=== PATIENT | male | born 1935 | race Caucasian/White ===

== ENCOUNTER 2018-02-16 07:28 | Outpatient (CLI) | payer MEDICARE ==
[2018-02-16] MEDS ORDERED: Iopamidol 370 76% 100 ML VIAL ONE (09:00)
--- NOTE | 2018-02-16 09:49 | CT ---
CT ABDOMEN WITH CONTRAST CT PELVIS WITH CONTRAST: DATE: 02/16/18 TIME: 0813 HOURS HISTORY: 82-year-old male with periumbilical abdominal pain, R10.33. COMPARISON: None. TECHNIQUE: IV injection of iodinated contrast media: 70 mL of Isovue-370. Oral contrast media: Administered. FINDINGS: A short loop of ileum protrudes into the right inguinal canal, without signs of entrapment. No small bowel dilation. Numerous small calcifications throughout the pancreas is evidence for chronic pancreatitis. There is focal enlargement of a segment of the body of the pancreas (axial image 22 of 92, series 2; coronal i mage 66 of 169, series 602) with dimensions of approximately 2.5 x 3.5 x 3.5 cm. There is questionabl e mild surrounding fat stranding. The pancreatic duct distal to this is mildly dilated to approximate ly 4 mm caliber. There is no pancreatic ductal dilation proximal to this. The dilation could be due t o an obstructing calculus that measures approximately 7 mm in diameter (coronal image 64 of 169, seri es 602; axial image 23 of 92, series 2). No hydronephrosis bilaterally. A few tiny cortical hypodensi ties in kidneys, too small to definitively characterize. 0.8 cm small hypodense lesion in left lobe o f liver in hepatic segment 2, too small to characterize. The rest of the liver is unremarkable. No sp lenomegaly. No adrenal mass. Atherosclerotic calcification without aneurysm of iliac arteries and abd ominal aorta. There are cholecystectomy clips in the gallbladder fossa. The appendix is surgically ab sent by history. No signs of acute colonic diverticulitis. Moderate volume of colonic stool. No ascit es or pneumoperitoneum. Lung bases are grossly clear. IMPRESSION: 1. Focal enlargement of the body of the pancreas. This could represent either a primary pancreatic n eoplasm or a mild acute pancreatitis. Recommend correlation with serum lipase and amylase. Recommen d follow up CT abdomen with contrast in 3 months. 2. Dilation of the distal pancreatic duct, due to occlusion either by the possible pancreatic mass o r by a 7 mm calculus. 3. Numerous calcifications of the pancreas: evidence for chronic pancreatitis. 4. Right inguinal hernia. 5. Status post appendectomy and cholecystectomy. JNDeepa POS: ELMIRA
== END 2018-02-16 07:29 | disposition home or self-care (01) ==
LOC: SCSCT 07:28
PROVIDERS: ATTEND Internal Medicine
DX: R10.33 Periumbilical pain (principal); K40.90 Unilateral inguinal hernia, without obstruction or gangrene, not specified as recurrent; K86.1 Other chronic pancreatitis; K86.89 Other specified diseases of pancreas; Z90.49 Acquired absence of other specified parts of digestive tract
CPT/HCPCS: 74177; 82565

== ENCOUNTER 2020-02-24 05:47 | Outpatient (CLI) | payer MEDICARE, OTHER ==
[2020-02-24 13:34] LABS: Hemoglobin 18.6 g/dL (14.0-18.0); Mean Corpuscular HGB CONC 32.8 g/dL (32.0-36.0); Mean Corpuscular Hemoglobin 32.3 pg (27.0-31.0); Mean Corpuscular Volume 98.6 fL (78.0-98.0); Mean Platelet Volume 7.3 fL (7.4-10.4); Platelet Count 291 thou/uL (130-400); Red Blood Cell (RBC) Count 5.74 mill/uL (4.70-6.10); White Blood Cell (WBC) Count 10.2 thou/uL (4.8-10.8)
[2020-02-24 13:53] LABS: Anion Gap 17 mmol/L (10-20); BUN (Urea Nitrogen) 32 mg/dL (8.4-25.7); Calc. Creatinine Clearance 0 mL/min (70-130); Calcium 9.2 mg/dL (7.8-10.44); Carbon Dioxide 24 mmol/L (23-31); Chloride 99 mmol/L (98-107); Estimated GFR-MDRD 47; Glucose 171 mg/dL (83-110); Potassium 4.1 mmol/L (3.5-5.1); Sodium 136 mmol/L (136-145)
[2020-02-24 13:59] LABS: INR-International Normal Ratio 0.9; Prothrombin Time 11.8 sec (12.0-14.7)
[2020-02-24 14:00] LABS: PTT 32.5 SEC (22.9-36.1)
[2020-02-24 14:07] LABS: Bacteria/HPF None Seen HPF (None Seen); Bilirubin Negative (Negative); Blood, Urine Negative (Negative); Clarity Clear (Clear); Glucose, Urine (Dipstick) Normal (Negative); Leukocyte 25 Leu/uL (Negative); Nitrite Negative (Negative); Protein, Urine (Dipstick) Negative (Neg-Trace); RBC/HPF 0-3 HPF (0-3); Squamous Epithelial 0-3 HPF (0-3); Urobilinogen Normal mg/dL (Less than 2); WBC/HPF 0-3 HPF (0-3)
[2020-02-24 17:18] LABS: SARS-CoV-2 MS2 Positive; SARS-CoV-2 N Gene Negative; SARS-CoV-2 S Gene Negative; SARS-CoV-2 orf1ab Negative
--- NOTE | 2020-02-27 16:15 | EKG ---
Test Reason : Blood Pressure : / mmHG Vent. Rate : 094 BPM Atrial Rate : 094 BPM P-R Int : 132 ms QRS Dur : 088 ms QT Int : 336 ms P-R-T Axes : 065 003 017 degrees QTc Int : 420 ms Normal sinus rhythm with sinus arrhythmia Possible Inferior infarct , age undetermined Abnormal ECG No previous ECGs available Confirmed by JEANETTE CHAHAL ([id number]) on 02/27/2020 4:15:16 PM Referred By: KIARA Confirmed By:JEANETTE CHAHAL
== END 2020-02-24 05:48 | disposition home or self-care (01) ==
LOC: LABBT 05:47
PROVIDERS: ATTEND Urology
DX: Z01.818 Encounter for other preprocedural examination (principal); Z11.59 Encounter for screening for other viral diseases
CPT/HCPCS: 80048; 81001; 85027; 85610; 85730; 87086; 93005; U0002; 87635; 93010; U0003

== ENCOUNTER 2020-02-28 08:55 | Day surgery (SDC) | payer MEDICARE ==
[2020-02-24 10:54] VITALS: BMI 29.2
[2020-02-28] MEDS ORDERED: Ondansetron PF 4 MG/2 ML Vial ONE (10:49)
[2020-02-28] MEDS ORDERED: Lidocaine 1% PF 5 ML VIAL ONE (10:49)
[2020-02-28] MEDS ORDERED: PROPOFOL 200 MG/20 ML VIAL ONE (10:49)
[2020-02-28] MEDS ORDERED: Fentanyl 100 MCG/2 ML VIAL ONE (12:07)
[2020-02-28] MEDS ORDERED: Midazolam HCl 2 mg/2 ml Vial ONE (12:07)
--- NOTE | 2020-02-28 20:06 | OP ---
DATE OF PROCEDURE: 02/28/2020 PREOPERATIVE DIAGNOSES: Bladder tumor, prostatic urethral tumor. POSTOPERATIVE DIAGNOSES: Bladder tumor, prostatic urethral tumor. PROCEDURES PERFORMED: Cysto TURBT of right wall bladder tumor, fulguration of tiny midline bladder tumor, and fulguration of prostatic urethral tumor. ANESTHESIA: LMA. ESTIMATED BLOOD LOSS: Minimal. FINDINGS: There was a tumor about half a centimeter in size. It was papillary on the right wall. There was small papillary tumor in midline on the posterior wall and also a small papillary tumor near what remained to the verumontanum from prior prostatic urethral surgery. Last two were cauterized as they were quite small. DESCRIPTION OF PROCEDURE: After obtaining written and verbal consent from the patient, after receiving IV Ancef, he was taken to the operating suite. He was placed in a supine position on the treatment table. PlexiPulses were placed in his lower extremities and turned on. He was given a general anesthetic and oral obturator intubation, placed in the dorsal lithotomy position, sterilely prepped and draped. Cystoscopy was performed with a 22-Italian sheath. This was well lubricated, passed under direct vision through the male urethra into the urinary bladder with the aid of a 30-degree lens and video camera monitor. The bladder was filled and emptied number of times being examined with both the 30 and 70-degree lens with the findings as above. A 24-Italian resectoscope sheath was passed with the visual obturator and 30-degree lens and video camera monitor through the male urethra into the bladder. An AdGent Digital resectoscope with Gyrus generator and Gyrus bladder tumor loop were used. Tumor on the right wall was resected and sent to Pathology and cauterized. It was not near the ureteral orifice. The other two much smaller papillary lesions were fulgurated. The bladder was drained and the instruments were removed. The catheter was not placed. He will need to void. He was taken out of the dorsal lithotomy position, awakened, extubated, and taken by stretcher to recovery room. Job ID: [id number]
== END 2020-02-28 15:48 | disposition home or self-care (01) ==
LOC: SDC 08:55
PROVIDERS: ATTEND Urology
PROC: 0T5B8ZZ Destruction of Bladder, Via Natural or Artificial Opening Endoscopic (ICD-10-PCS; principal; 2020-02-28)
PROC: 0VT08ZZ Resection of Prostate, Via Natural or Artificial Opening Endoscopic (ICD-10-PCS; 2020-02-28)
DX: D49.59 Neoplasm of unspecified behavior of other genitourinary organ (principal); C67.2 Malignant neoplasm of lateral wall of bladder; I12.9 Hypertensive chronic kidney disease with stage 1 through stage 4 chronic kidney disease, or unspecified chronic kidney disease; E11.22 Type 2 diabetes mellitus with diabetic chronic kidney disease; N18.9 Chronic kidney disease, unspecified; F17.200 Nicotine dependence, unspecified, uncomplicated; Z79.4 Long term (current) use of insulin; Z79.82 Long term (current) use of aspirin; Z79.899 Other long term (current) drug therapy
CPT/HCPCS: 36416; 88307; J0690; J2001; J2250; J2405; J2704; J3010

== ENCOUNTER 2020-09-01 20:11 | Inpatient (IN) | payer MEDICARE ==
--- NOTE | 2020-09-01 21:01 | RAD ---
EXAM: Single view of the chest HISTORY: Urinary retention and sepsis COMPARISON: 11/22/2016 FINDINGS: Single view of the chest shows a normal sized cardiomediastinal silhouette. There is no louann dence of consolidation, mass, or pleural effusion. Degenerative changes are seen in the spine. IMPRESSION: No evidence of acute cardiopulmonary disease
[2020-09-01 21:07] LABS: ALT (SGPT) 16 U/L (8-55); AST (SGOT) 19 U/L (5-34); Albumin 4.3 g/dL (3.4-4.8); Alkaline Phosphatase 96 U/L (40-110); Anion Gap 17 mmol/L (10-20); BUN (Urea Nitrogen) 23 mg/dL (8.4-25.7); Bilirubin, Total 0.5 mg/dL (0.2-1.2); Calc. Creatinine Clearance 0 mL/min (70-130); Carbon Dioxide 21 mmol/L (23-31); Chloride 100 mmol/L (98-107); Globulin 3.1 g/dL (2.4-3.5); Glucose 174 mg/dL (83-110); Lipase 48 U/L (8-78); Protein, Total 7.4 g/dL (5.8-8.1); Sodium 134 mmol/L (136-145)
[2020-09-01] MEDS ORDERED: Lidocaine 2% Jelly 5 ML TUBE TOP SCH (21:15)
[2020-09-01 21:17] LABS: Band 17 % (5-11); Hemoglobin 16.2 g/dL (14.0-18.0); Lymphocytes 4 % (21-51); MDiff Complete? YES; Mean Corpuscular HGB CONC 33.7 g/dL (32.0-36.0); Mean Corpuscular Hemoglobin 32.4 pg (27.0-31.0); Monocytes 7 % (0-10); Neutrophil 72 % (42-75); Platelet Count 260 thou/uL (130-400); RBC Distribution Width 12.3 % (11.5-14.5); Red Blood Cell (RBC) Count 5.01 mill/uL (4.70-6.10); White Blood Cell (WBC) Count 22.7 thou/uL (4.8-10.8)
[2020-09-01] MEDS ORDERED: Acetaminophen 500 MG TAB ONE (21:17)
[2020-09-01] MEDS ORDERED: cefTRIAXone\\ROCEPHIN 2 GM VIAL ONE (21:17)
[2020-09-01 21:32] LABS: Bacteria/HPF 4+ HPF (None Seen); Bilirubin Negative (Negative); Blood, Urine 1+ (Negative); Clarity Turbid (Clear); Glucose, Urine (Dipstick) 50 mg/dL (Negative); Ketone, Urine Negative (Negative); Leukocyte 500 Leu/uL (Negative); Nitrite 2+ (Negative); Protein, Urine (Dipstick) 20 mg/dL (Neg-Trace); Specific Gravity, Urine 1.015 (1.002-1.036); Squamous Epithelial 0-3 HPF (0-3); Urobilinogen Normal mg/dL (Less than 2); WBC/HPF Greater than 50 HPF (0-3)
[2020-09-01 23:37] LABS: Lactic Acid 1.6 mmol/L (0.5-2.2)
[2020-09-02] MEDS ORDERED: Acetaminophen 325 MG TAB PO PRN (00:45)
[2020-09-02] MEDS ORDERED: Ondansetron PF 4 MG/2 ML Vial IVP PRN (00:45)
[2020-09-02] MEDS ORDERED: Ondansetron ODT 4 MG TAB SL PRN (00:45)
[2020-09-02] MEDS ORDERED: Sodium Chloride 0.9% 1,000 ML IV SCH (01:00)
[2020-09-02 01:05] VITALS: BMI 32.1
[2020-09-02] MEDS ORDERED: Calcium Carbonate 500 MG ChewTAB PO PRN (01:27)
--- NOTE | 2020-09-02 01:36 | PDOC.HHP ---
Hospitalist HPI - History of Present Illness urinary retention History of Present Illness: Case of an 84y/o male with pmhx of bladder CA, htn, bph and DM who comes to hospital due to difficulty urinating. patient refers he was on his usual state of health until 2 days ago when he had a cystoscopy by Dr. Hubbard. he has a history of bladder CA and this was part of his f/u which was resected several months ago. He states was given 1 dose of antibiotic and sent home, once he started with difficulty voiding, has only been able to void 2 times for the last 2 days despite urgency. Today he is only able to urinate a very small amount and has had increasing lower abdominal pain. patient referes some fever dysuria and chills denies hematuria nausea or vomiting. at the ED a hill cath was placed and pt was dx with sepsis secondary to uti for which hospitalist was called for further evaluation and management Hospitalist ROS - Review of Systems All other systems reviewed; all pertinent +/- noted in HPI/Subj - Medication Medications: Active Medications Generic Name Dose Route Start Last Admin Trade Name Freq PRN Reason Stop Dose Admin Sodium Chloride 1,000 mls @ 100 mls/hr 09/02/20 01:00 09/02/20 01:11 Normal Saline 0.9% IV 09/02/20 10:59 1,000 mls .Q10H MANJULA Administration Hospitalist History - Past Surgical History Other Surgical History: bladder ca removal - Family History Family History: reports: no pertinent history, diabetes mellitus - Social History Smoking Status: Never smoker Alcohol: reports: None Drugs: reports: none Living Situation: With Family - Exam General Appearance: NAD, awake alert Eye: PERRL, anicteric sclera ENT: normocephalic atraumatic, no oropharyngeal lesions, moist mucosa Neck: supple, symmetric, no JVD, no thyromegaly Heart: RRR, no murmur, no gallops, no rubs Respiratory: CTAB, no wheezes, no rales, no ronchi Gastrointestinal: soft, non-distended, normal bowel sounds Gastrointestinal - other findings: suprapubic pain Extremities: no cyanosis, no clubbing, no edema Skin: normal turgor, no lesions, no rashes Neurological: cranial nerve grossly intact, normal sensation to touch, no weakness Musculoskeletal: normal tone, normal strength, no muscle wasting Psychiatric: normal affect, normal behavior, A&O x 3 Hospitalist Results - Labs Result Diagrams: 09/01/20 20:17 09/01/20 20:17 Lab results: WBC 22.7 thou/uL (4.8-10.8) H 09/01/20 20:17 Hgb 16.2 g/dL (14.0-18.0) 09/01/20 20:17 Hct 48.1 % (42.0-52.0) 09/01/20 20:17 MCV 96.0 fL (78.0-98.0) 09/01/20 20:17 Plt Count 260 thou/uL (130-400) 09/01/20 20:17 Band Neuts % (Manual) 17 % (5-11) H 09/01/20 20:17 Sodium 134 mmol/L (136-145) L 09/01/20 20:17 Potassium 4.0 mmol/L (3.5-5.1) 09/01/20 20:17 Chloride 100 mmol/L (98-107) 09/01/20 20:17 Carbon Dioxide 21 mmol/L (23-31) L 09/01/20 20:17 BUN 23 mg/dL (8.4-25.7) 09/01/20 20:17 Creatinine 1.48 mg/dL (0.7-1.3) H 09/01/20 20:17 Glucose 174 mg/dL (83-110) H 09/01/20 20:17 Lactic Acid 1.6 mmol/L (0.5-2.2) 09/01/20 23:07 Calcium 9.0 mg/dL (7.8-10.44) 09/01/20 20:17 Total Bilirubin 0.5 mg/dL (0.2-1.2) 09/01/20 20:17 AST 19 U/L (5-34) 09/01/20 20:17 ALT 16 U/L (8-55) 09/01/20 20:17 Alkaline Phosphatase 96 U/L (40-110) 09/01/20 20:17 Serum Total Protein 7.4 g/dL (5.8-8.1) 09/01/20 20:17 Albumin 4.3 g/dL (3.4-4.8) 09/01/20 20:17 Lipase 48 U/L (8-78) 09/01/20 20:17 Urine Ketones Negative mg/dL (Negative) 09/01/20 21:14 Urine Blood 1+ (Negative) A 09/01/20 21:14 Urine Nitrite 2+ (Negative) A 09/01/20 21:14 Ur Leukocyte Esterase 500 Almaz/uL (Negative) A 09/01/20 21:14 Urine RBC 11-20 HPF (0-3) A 09/01/20 21:14 Urine WBC Greater than 50 HPF (0-3) A 09/01/20 21:14 Ur Squamous Epith Cells 0-3 HPF (0-3) 09/01/20 21:14 Urine Bacteria 4+ HPF (None Seen) A 09/01/20 21:14 Hospitalist H&P A/P - Problem (1) Sepsis Code(s): A41.9 - SEPSIS, UNSPECIFIED ORGANISM Status: Acute (2) UTI (urinary tract infection) Status: Acute (3) Bladder retention of urine Code(s): R33.9 - RETENTION OF URINE, UNSPECIFIED Status: Acute (4) Diabetes Code(s): E11.9 - TYPE 2 DIABETES MELLITUS WITHOUT COMPLICATIONS Status: Acute (5) HTN (hypertension) Code(s): I10 - ESSENTIAL (PRIMARY) HYPERTENSION Status: Acute - Plan Plan: 84y/o male with the stated pmxh who presents w sepsis secondary to uti and urinary retention sepsis secondary to uti - 22 wbcs, tachycardia i 135s with a u/a consistent with uti - sepsis bundles started cultures taken, ivfs given and broad spectrum abx given - continue with rocephin - normal LA - f/u cultures urinary retention - hx of bph - recent hx of cytoscopy - hill cath placed on ED - continue flomax - consider urology consult if needed, can likely f/u as opd dm - long acting insulin - acc + ss htn - holding medication for now in the setting of sepsis, restart when more stable
[2020-09-02] MEDS ORDERED: Dextrose 5% in Water 1,000 ML IV PRN (03:53)
[2020-09-02] MEDS ORDERED: Dextrose 50% Abboject 50 ML SYRINGE SLOW IVP PRN (03:53)
[2020-09-02] MEDS: Sodium Chloride 0.9% 1,000 ML IV SCH ×2 (06:14→12:29)
[2020-09-02] MEDS: HumaLOG 300 UNITS/3 ML VIAL SC PRN ×3 (06:18→21:00)
[2020-09-02 06:42] LABS: Band 22 % (5-11); Hemoglobin 14.9 g/dL (14.0-18.0); Lymphocytes 8 % (21-51); MDiff Complete? YES; Mean Corpuscular HGB CONC 33.1 g/dL (32.0-36.0); Mean Corpuscular Hemoglobin 32.4 pg (27.0-31.0); Mean Platelet Volume 7.5 fL (7.4-10.4); Monocytes 4 % (0-10); Neutrophil 66 % (42-75); Platelet Count 234 thou/uL (130-400); RBC Distribution Width 12.3 % (11.5-14.5); Red Blood Cell (RBC) Count 4.61 mill/uL (4.70-6.10); White Blood Cell (WBC) Count 25.5 thou/uL (4.8-10.8)
[2020-09-02 06:45] LABS: ALT (SGPT) 15 U/L (8-55); AST (SGOT) 15 U/L (5-34); Albumin 3.7 g/dL (3.4-4.8); Alkaline Phosphatase 83 U/L (40-110); Anion Gap 16 mmol/L (10-20); BUN (Urea Nitrogen) 20 mg/dL (8.4-25.7); Bilirubin, Total 0.7 mg/dL (0.2-1.2); Calc. Creatinine Clearance 58 mL/min (70-130); Calcium 8.2 mg/dL (7.8-10.44); Carbon Dioxide 24 mmol/L (23-31); Chloride 102 mmol/L (98-107); Globulin 2.6 g/dL (2.4-3.5); Glucose 146 mg/dL (83-110); Potassium 3.9 mmol/L (3.5-5.1); Protein, Total 6.3 g/dL (5.8-8.1); Sodium 138 mmol/L (136-145)
[2020-09-02] MEDS: Aspirin 81 mg Enteric Coated Tablet PO SCH (08:39)
[2020-09-02] MEDS: Enoxaparin Sodium 40 MG/0.4 ML SYRINGE SC SCH (08:39)
[2020-09-02] MEDS: HYDROcodone/Acetaminophen 5/325 mg Tablet PO PRN ×2 (18:32→23:51)
[2020-09-02] MEDS: cefTRIAXone\\ROCEPHIN 2 GM in Sodium Chloride 0.9% 100 ML IVPB SCH (20:46)
[2020-09-02] MEDS: Tamsulosin HCl 0.4 MG CAP PO SCH (20:46)
[2020-09-02 20:50] LABS: SARS-CoV-2 MS2 Positive; SARS-CoV-2 N Gene Negative; SARS-CoV-2 S Gene Negative; SARS-CoV-2 by NAA Not Detected (NotDetected); SARS-CoV-2 orf1ab Negative
[2020-09-02] MEDS: Insulin Glargine 25 UNITS in Pre-Filled Syringe 1 EACH SC SCH (20:55)
[2020-09-03] MEDS: HYDROcodone/Acetaminophen 5/325 mg Tablet PO PRN ×4 (04:30→21:09)
[2020-09-03] MEDS: Sodium Chloride 0.9% 1,000 ML IV SCH (06:18)
--- NOTE | 2020-09-03 08:24 | PDOC.HOSPP ---
- Subjective Encounter Date: 09/02/20 Encounter Time: 12:00 Subjective: pt seen and examined, he still has some soreness in the lower quadrant; otherwise no complaints. - Objective Vital Signs & Weight: Vital Signs (12 hours) Temp Pulse Resp BP Pulse Ox 09/03/20 08:00 97.9 F 81 16 156/89 H 95 09/03/20 04:32 97.8 F 76 18 143/87 H 96 09/02/20 23:42 97.4 F L 80 20 134/79 94 L Weight Weight 217 lb 12.785 oz I&O: 09/02/20 09/03/20 09/04/20 06:59 06:59 06:59 Intake Total 937 2810 Output Total 1400 2250 Balance -463 560 Result Diagrams: 09/02/20 05:28 09/02/20 05:28 Additional Labs: Accuchecks 09/03/20 09/02/20 09/02/20 05:47 20:50 16:16 POC Glucose 98 258 H 90 09/02/20 11:02 POC Glucose 260 H Hospitalist ROS - Medication Medications: Active Medications Generic Name Dose Route Start Last Admin Trade Name Freq PRN Reason Stop Dose Admin Hydrocodone Bitart/Acetaminophen 1 tab 09/02/20 01:27 09/03/20 04:30 Hydrocodone/Acetaminophen 5/325 Mg Tablet PO 1 tab Q4H PRN Administration Moderate Pain (4-6) Aspirin 81 mg 09/02/20 09:00 09/02/20 08:39 Aspirin 81 Mg Enteric Coated Tablet PO 81 mg DAILY MANJULA Administration Enoxaparin Sodium 40 mg 09/02/20 09:00 09/02/20 08:39 Enoxaparin Sodium 40 Mg/0.4 Ml Syringe SC 40 mg 0900 MANJULA Administration Sodium Chloride 1,000 mls @ 70 mls/hr 09/02/20 01:30 09/03/20 06:18 Normal Saline 0.9% IV 1,000 mls .[id number] MANJULA Administration Ceftriaxone Sodium 2 gm/ 100 mls @ 200 mls/hr 09/02/20 21:00 09/02/20 20:46 Sodium Chloride IVPB 100 mls Q24HR MANJULA Administration Insulin Glargine 25 units/ 0.25 mls @ 0 mls/hr 09/02/20 21:00 09/02/20 20:55 Miscellaneous Medication SC 0.25 mls HS MANJULA Administration Insulin Human Lispro 0 units 09/02/20 03:53 09/02/20 21:00 Humalog 300 Units/3 Ml Vial SC 6 unit .MODERATE SLIDING SC PRN Administration Moderate Correctional Scale Sodium Chloride 10 ml 09/02/20 09:00 09/02/20 21:35 Flush - Normal Saline 10 Ml Syringe IVF Not Given Q12HR MANJULA Tamsulosin HCl 0.4 mg 09/02/20 21:00 09/02/20 20:46 Tamsulosin Hcl 0.4 Mg Cap PO 0.4 mg HS MANJULA Administration - Exam General Appearance: NAD, awake alert Eye: PERRL ENT: normocephalic atraumatic Neck: supple Heart: RRR Respiratory: CTAB, normal chest expansion Gastrointestinal: soft, normal bowel sounds Neurological: no focal deficits Psychiatric: A&O x 3 Hosp A/P - Plan sepsis secondary to uti EColi UTI - sepsis bundles started cultures taken, ivfs given and broad spectrum abx given - continue with rocephin - normal LA -Sensitivity pending. urinary retention - hx of bph - recent hx of cytoscopy - hill cath placed on ED - continue flomax - consider urology consult if needed, can likely f/u as outpatient dm - long acting insulin - acc + ss htn -Creatinine 1.3 -We can resume his home medications
[2020-09-03] MEDS: Enoxaparin Sodium 40 MG/0.4 ML SYRINGE SC SCH (08:43)
[2020-09-03] MEDS: Aspirin 81 mg Enteric Coated Tablet PO SCH (08:43)
[2020-09-03 09:00] LABS: #Eosinphils 0.1 thou/uL (0.0-0.7); #Lymphocytes 1.5 thou/uL (1.20-3.40); #Monocytes 0.9 thou/uL (0.11-0.59); #Neutrophils 16.2 thou/uL (1.40-6.50); %Basophils 0.2 % (0.0-1.0); %Eosinophils 0.6 % (0.0-10.0); %Lymphocytes 8.1 % (21.0-51.0); %Monocytes 4.6 % (0.0-10.0); %Neutrophils 86.6 % (42.0-75.0); Hemoglobin 14.2 g/dL (14.0-18.0); Mean Corpuscular HGB CONC 32.9 g/dL (32.0-36.0); Mean Corpuscular Hemoglobin 31.9 pg (27.0-31.0); Mean Corpuscular Volume 97.1 fL (78.0-98.0); Mean Platelet Volume 7.1 fL (7.4-10.4); Platelet Count 208 thou/uL (130-400); RBC Distribution Width 12.3 % (11.5-14.5); Red Blood Cell (RBC) Count 4.44 mill/uL (4.70-6.10); White Blood Cell (WBC) Count 18.7 thou/uL (4.8-10.8)
[2020-09-03 09:15] LABS: Anion Gap 12 mmol/L (10-20); BUN (Urea Nitrogen) 17 mg/dL (8.4-25.7); Calc. Creatinine Clearance 68 mL/min (70-130); Calcium 8.3 mg/dL (7.8-10.44); Carbon Dioxide 28 mmol/L (23-31); Chloride 102 mmol/L (98-107); Glucose 142 mg/dL (83-110); Potassium 3.6 mmol/L (3.5-5.1); Sodium 138 mmol/L (136-145)
[2020-09-03] MEDS: HumaLOG 300 UNITS/3 ML VIAL SC PRN ×2 (11:07→21:59)
--- NOTE | 2020-09-03 15:02 | PDOC.HOSPP ---
- Subjective Encounter Date: 09/03/20 Encounter Time: 10:40 Subjective: Patient has significant hematuria. Pain in the lower quadrant seems to be improving. White count trending down. Urine culture growing E. coli - Objective Vital Signs & Weight: Vital Signs (12 hours) Temp Pulse Resp BP Pulse Ox 09/03/20 10:43 98.0 F 76 16 134/86 96 09/03/20 08:00 97.9 F 81 16 156/89 H 95 09/03/20 04:32 97.8 F 76 18 143/87 H 96 Weight Weight 217 lb 12.785 oz I&O: 09/02/20 09/03/20 09/04/20 06:59 06:59 06:59 Intake Total 937 2810 Output Total 1400 2250 Balance -463 560 Result Diagrams: 09/03/20 08:36 09/03/20 08:36 Additional Labs: Accuchecks 09/03/20 09/03/20 09/02/20 10:46 05:47 20:50 POC Glucose 220 H 98 258 H 09/02/20 16:16 POC Glucose 90 Hospitalist ROS - Medication Medications: Active Medications Generic Name Dose Route Start Last Admin Trade Name Freq PRN Reason Stop Dose Admin Hydrocodone Bitart/Acetaminophen 1 tab 09/02/20 01:27 09/03/20 08:46 Hydrocodone/Acetaminophen 5/325 Mg Tablet PO 1 tab Q4H PRN Administration Moderate Pain (4-6) Aspirin 81 mg 09/02/20 09:00 09/03/20 08:43 Aspirin 81 Mg Enteric Coated Tablet PO 81 mg DAILY MANJULA Administration Enoxaparin Sodium 40 mg 09/02/20 09:00 09/03/20 08:43 Enoxaparin Sodium 40 Mg/0.4 Ml Syringe SC 40 mg 0900 MANJULA Administration Sodium Chloride 1,000 mls @ 70 mls/hr 09/02/20 01:30 09/03/20 06:18 Normal Saline 0.9% IV 1,000 mls .[id number] MANJULA Administration Ceftriaxone Sodium 2 gm/ 100 mls @ 200 mls/hr 09/02/20 21:00 09/02/20 20:46 Sodium Chloride IVPB 100 mls Q24HR MANJULA Administration Insulin Glargine 25 units/ 0.25 mls @ 0 mls/hr 09/02/20 21:00 09/02/20 20:55 Miscellaneous Medication SC 0.25 mls HS MANJULA Administration Insulin Human Lispro 0 units 09/02/20 03:53 09/03/20 11:07 Humalog 300 Units/3 Ml Vial SC 4 unit .MODERATE SLIDING SC PRN Administration Moderate Correctional Scale Sodium Chloride 10 ml 09/02/20 09:00 09/03/20 08:33 Flush - Normal Saline 10 Ml Syringe IVF Not Given Q12HR MANJULA Tamsulosin HCl 0.4 mg 09/02/20 21:00 09/02/20 20:46 Tamsulosin Hcl 0.4 Mg Cap PO 0.4 mg HS MANJULA Administration - Exam General Appearance: NAD, awake alert Eye: PERRL Neck: supple Heart: RRR Respiratory: CTAB, normal chest expansion Gastrointestinal: soft, normal bowel sounds Skin - other findings: Hill has hematuria Neurological: no focal deficits Psychiatric: A&O x 3 Hosp A/P - Plan sepsis secondary to uti EColi UTI - sepsis bundles started cultures taken, ivfs given and broad spectrum abx given - continue with rocephin - normal LA -Sensitivity pending. urinary retention - hx of bph - recent hx of cytoscopy - hill cath placed in ED - continue flomax dm - long acting insulin - acc + ss htn - cw home meds Hematuria with recent cystoscopy. Bladder tumor prosthetic urethral tumor Cystoscopy with TURBT of right wall bladder tumor performed on August 24. -Since the the procedure was performed over 10 days ago and he has a ?new blee ding episode will consult to Dr. Hubbard tomorrow morning for his opinion.
[2020-09-03] MEDS: cefTRIAXone\\ROCEPHIN 2 GM in Sodium Chloride 0.9% 100 ML IVPB SCH (21:08)
[2020-09-03] MEDS: Tamsulosin HCl 0.4 MG CAP PO SCH (21:09)
[2020-09-03] MEDS: Insulin Glargine 25 UNITS in Pre-Filled Syringe 1 EACH SC SCH (22:01)
[2020-09-04] MEDS: Sodium Chloride 0.9% 1,000 ML IV SCH ×2 (00:06→11:25)
--- NOTE | 2020-09-04 01:15 | CON ---
DATE OF CONSULTATION: 09/03/2020 HISTORY OF PRESENT ILLNESS: This is an 84-year-old male with a history of a noninvasive low-grade bladder cancer in February of 2020. He was seen in the office earlier this week for a cystoscopic exam, which was not showing any recurrent tumor. He received a dose of Bactrim, after that he went home. He had trouble urinating, became worse, had high fever, he thinks around 103, had to come into the emergency center. In the emergency center is where he had the high fever. It looks like his blood pressure is actually fine. He was tachycardic with a fever. I could only find 101.1, but the patient believes it is 103. He had urine culture done. Urine culture showed an E. coli, which was resistant to Bactrim and to ampicillin. His urinalysis had white cells and bacteria. He had elevated white count, normal hemoglobin and normal creatinine. He has been on Rocephin, I think since he came in, which does cover. He is also on Flomax. He has not been febrile since the Andrade was placed and since he was started on antibiotics. When the Andrade catheter was placed about 100 mL were obtained. He is currently feeling a lot better. His medical history and surgical history includes a noninvasive bladder cancer, diabetes, hypertension. At this point, I will review my notes from the office. He can probably go home on oral Cipro. I think we can probably look at getting his catheter out, possibly as soon as tomorrow, if he has a good night. He does have some hematuria right now, but I think this is related to the catheter as well as him being on Lovenox. This was discussed with him. Job ID: [id number] [facility]
[2020-09-04] MEDS: HYDROcodone/Acetaminophen 5/325 mg Tablet PO PRN (04:20)
[2020-09-04 06:31] LABS: Anion Gap 12 mmol/L (10-20); BUN (Urea Nitrogen) 14 mg/dL (8.4-25.7); Calc. Creatinine Clearance 73 mL/min (70-130); Calcium 7.9 mg/dL (7.8-10.44); Carbon Dioxide 28 mmol/L (23-31); Chloride 103 mmol/L (98-107); Glucose 97 mg/dL (83-110); Potassium 3.5 mmol/L (3.5-5.1); Sodium 139 mmol/L (136-145)
[2020-09-04] MEDS: Aspirin 81 mg Enteric Coated Tablet PO SCH (08:16)
[2020-09-04] MEDS: Enoxaparin Sodium 40 MG/0.4 ML SYRINGE SC SCH (08:16)
[2020-09-04 11:12] VITALS: BP 165/98; TEMP 97.3
--- NOTE | 2020-09-04 12:24 | PRG ---
DATE OF SERVICE: 09/04/2020 The patient is afebrile with stable vital signs. His urine is still pink tinged. He would like to get the catheter out. The amount of urine in the bladder when the catheter was placed was not considerable and I think it is reasonable to take it up before he goes home. I reviewed my records and he did not have any evidence of bladder tumor recurrence when he was seen last week. His urinalysis at the office was clear. He was given actually a Bactrim at the end of the procedure. However, the culture that grew out here was resistant to Bactrim. I think he could go home if he urinates okay and I have taken his catheter out now. If he voids fine, he will be fine to go home from my standpoint, probably should go home on appropriate oral antibiotic for 10 days. I think Cipro would be a reasonable one or one of the cephalosporins that he would prefer. I have asked him to contact my office to be seen in 2 or 3 weeks to recheck the urine. Job ID: [id number]
[2020-09-04] MEDS: HumaLOG 300 UNITS/3 ML VIAL SC PRN (13:29)
--- NOTE | 2020-09-04 13:53 | PDOC.FMACP ---
Advance Care Planning - Problem (1) Bladder retention of urine Status: Acute Code(s): R33.9 - RETENTION OF URINE, UNSPECIFIED (2) Diabetes Status: Acute Code(s): E11.9 - TYPE 2 DIABETES MELLITUS WITHOUT COMPLICATIONS (3) HTN (hypertension) Status: Acute Code(s): I10 - ESSENTIAL (PRIMARY) HYPERTENSION (4) Sepsis Status: Acute Code(s): A41.9 - SEPSIS, UNSPECIFIED ORGANISM (5) UTI (urinary tract infection) Status: Acute - Note Participants: patient, palliative care Summary: Palliative Care revisited Advanced Care Planning. The diagnosis, prognosis and goals of care were discussed. Appropriate forms and documentation to accomplish the goals of care were discussed. All questions were answered. Mr Pavon confirms he has MPOA/Directive to Physician at home. He elected to complete an OOHDNAR. Chester Russell registrar assisted in completion of OOHDNAR. After attending physician signs the document she will provide the original and copy to the patient as well as copy for the chart for medical records. Encouraged Mr Pavon to have copies of his MPOA and Directive to Physician given to the hospital for medical records. No questions. Please also refer to Palliative Care notes in note section. Time Spent (mins): 15
--- NOTE | 2020-09-04 14:03 | PDOC.PALFU ---
Palliative Care Follow-up Note Palliative Care will sign off as Advanced directives addressed and completed as per patient wishes.
--- NOTE | 2020-09-04 14:50 | PDOC.DS.DS ---
Provider - Provider Date of Admission: 09/01/20 23:18 Admitting Provider: Sheldon Sawyer Primary Care Physician: NO PCP PROVIDER Course - Hospital Course Hospital Course: 84-year-old male presented with sepsis secondary to uti EColi UTI -pansensitive urinary retention Benign prostate hypertrophy Hematuria with recent cystoscopy. Bladder tumor --prosthetic urethral tumor Cystoscopy with TURBT of right wall bladder tumor performed on August 24. -Since the the procedure was performed over 10 days ago and he received Bactrim after the procedure. However culture grew was resistant to Bactrim at that time. It was thought that hematuria could be due to Lovenox as DVT prophylaxis and trauma due to Hill. His catheter was removed and he voided. He will follow with Dr. Hubbard in 2 to 3 weeks time. Discharge time took over 30 minutes. Resuscitation Status: 09/02/20 01:27 Resuscitation Status Routine Resuscitation Status: FULL: Full Resuscitation - Labs Lab Results: 09/03/20 08:36 09/04/20 05:28 Abnormal Lab Results - Last 48 hrs 09/03/20 08:36: WBC 18.7 H, RBC 4.44 L, MCH 31.9 H, MPV 7.1 L, Neutrophils % 86.6 H, Lymphocytes % 8.1 L, Neutrophils # 16.2 H, Monocytes # 0.9 H Microbiology - Entire Visit 09/01/20 21:14 Urine hill catheter Urine Culture - Final Escherichia coli 09/01/20 20:17 Venous blood - Left Hand Blood Culture - Preliminary NO GROWTH AT 48 HOURS 09/01/20 20:21 Venous blood - Right Arm Blood Culture - Preliminary NO GROWTH AT 48 HOURS - Physical Exam Vitals: Vital Signs (12 hours) Temp Pulse Resp BP Pulse Ox 09/04/20 11:11 97.3 F L 86 18 165/98 H 94 L 09/04/20 08:05 97.6 F 86 18 158/79 H 94 L 09/04/20 04:00 97.7 F 80 18 151/88 H 96 Weight Weight 217 lb 12.785 oz Physical Exam: The patient was seen and examined on the day of discharge. Patient doing well. He will be going home after clearance from the urologist he is for 63 years had a good conversation with him and he is overall very successful in his family life with almost 20 grandchildren. Plan - Discharge Medications Prescriptions: Nitrofurantoin Monohyd/M-Cryst [Macrobid] 100 mg PO BID 10 Days #20 cap Home Medications: Medication Instructions Recorded Confirmed Type Aspirin [Ecotrin] 81 mg PO DAILY 02/24/20 09/02/20 History Cholecalciferol (Vitamin D3) 2,000 unit PO DAILY 02/24/20 09/02/20 History [Vitamin D] Cyanocobalamin (Vitamin B-12) 1,000 mcg PO DAILY 02/24/20 09/02/20 History [Vitamin B-12] Glimepiride [Amaryl] 4 mg PO DAILY 02/24/20 09/02/20 History Insulin Aspart Prot/Insuln Asp 18 unit SQ QAM 02/24/20 09/02/20 History [Novolog Mix 70-30 Flexpen] Losartan/Hydrochlorothiazide 1 tab PO DAILY 02/24/20 09/02/20 History [Losartan-Hctz 100-25 mg Tab] Tamsulosin HCl [Flomax] 0.4 mg PO HS 02/24/20 09/02/20 History Testosterone Cypionate 100 mg IM Q14D 02/24/20 09/02/20 History metFORMIN HCl [Metformin HCl] 1,000 mg PO BID 02/24/20 09/02/20 History Insulin Aspart Prot/Insuln Asp 12 unit SQ QPM 09/02/20 09/02/20 History [Insulin Aspart Prot-Insuln Asp] Nitrofurantoin Monohyd/M-Cryst 100 mg PO BID 10 Days #20 cap 09/04/20 Rx [Macrobid] Allergies: No Known Allergies Allergy (Unverified 02/24/20 10:54) - Discharge Instructions Activity:: Activity as Tolerated Nourishment:: Regular Diet - Follow up Plan Referrals: PROVIDER,NO PCP [Primary Care Provider] - Kayden Stovall MD [Active] - (FOLLOW UP DIRECTED) Disposition: HOME Quality - Care Measures CORE MEASURES:: N/A
--- NOTE | 2020-09-09 16:34 | EKG ---
Test Reason : Blood Pressure : / mmHG Vent. Rate : 129 BPM Atrial Rate : 129 BPM P-R Int : 138 ms QRS Dur : 086 ms QT Int : 282 ms P-R-T Axes : 064 013 053 degrees QTc Int : 413 ms Sinus tachycardia Nonspecific ST abnormality Abnormal ECG Confirmed by ART WALLIS DO ([id number]), rewrite editor SALEEM COLBERT ([id number]) on 09/09/2020 4:33:33 PM Referred By: Confirmed By:ART WALLIS DO
== END 2020-09-04 15:00 | disposition home or self-care (01) | DRG 872 ==
LOC: ERS 20:11 → SURG A 23:18
PROVIDERS: ADMIT Internal Medicine; ATTEND Internal Medicine
DX: A41.51 Sepsis due to Escherichia coli [E. coli] (principal); N39.0 Urinary tract infection, site not specified; Z16.29 Resistance to other single specified antibiotic; Z20.828 Contact with and (suspected) exposure to other viral communicable diseases; Z51.5 Encounter for palliative care; E11.9 Type 2 diabetes mellitus without complications; N40.1 Benign prostatic hyperplasia with lower urinary tract symptoms; R33.8 Other retention of urine; I10 Essential (primary) hypertension; Z79.899 Other long term (current) drug therapy; Z79.84 Long term (current) use of oral hypoglycemic drugs
CPT/HCPCS: 36415; 36416; 51702; 71045; 80048; 80053; 81003; 81015; 83605; 83690; 85007; 85025; 85027; 87040; 87077; 87086; 87186; 87635; 93005; 96365; 96366; J0696; J1650; J1815; J3490; U0003

== ENCOUNTER 2021-08-15 09:04 | Outpatient (CLI) | payer MEDICARE | END 2021-08-15 09:05 | disposition home or self-care (01) | LOC: NM 09:04 | PROVIDERS: ATTEND Internal Medicine | DX: R93.7 Abnormal findings on diagnostic imaging of other parts of musculoskeletal system (principal) | CPT/HCPCS: 78306; A9503 ==

== ENCOUNTER 2022-11-21 11:48 | Inpatient (IN) | payer MEDICARE ==
[2022-11-21 12:30] LABS: #Eosinphils 0.1 thou/uL (0.0-0.7); #Lymphocytes 1.4 thou/uL (1.20-3.40); #Monocytes 0.4 thou/uL (0.11-0.59); #Neutrophils 8.1 thou/uL (1.40-6.50); %Basophils 0.4 % (0.0-1.0); %Eosinophils 0.5 % (0.0-10.0); %Lymphocytes 14.2 % (21.0-51.0); %Monocytes 3.9 % (0.0-10.0); %Neutrophils 80.9 % (42.0-75.0); Hemoglobin 13.4 g/dL (14.0-18.0); Mean Corpuscular HGB CONC 32.4 g/dL (32.0-36.0); Mean Corpuscular Hemoglobin 32.2 pg (27.0-31.0); Mean Corpuscular Volume 99.5 fl (78.0-98.0); Mean Platelet Volume 7.2 fL (7.4-10.4); Platelet Count 256 10x3/uL (130-400); RBC Distribution Width 11.6 % (11.5-14.5); Red Blood Cell (RBC) Count 4.17 mill/uL (4.70-6.10); White Blood Cell (WBC) Count 10.1 10x3/uL (4.8-10.8)
[2022-11-21 12:58] LABS: ALT (SGPT) 81 U/L (8-55); AST (SGOT) 148 U/L (5-34); Albumin 4.3 g/dL (3.4-4.8); Alkaline Phosphatase 114 U/L (40-110); Anion Gap 21 mmol/L (10-20); BUN (Urea Nitrogen) 26 mg/dL (8.4-25.7); Bilirubin, Total 1.1 mg/dL (0.2-1.2); CK (CPK) 111 U/L (30-200); Calc. Creatinine Clearance 0 mL/min (70-130); Carbon Dioxide 19 mmol/L (23-31); Chloride 102 mmol/L (98-107); Estimated GFR 47; Globulin 2.6 g/dL (2.4-3.5); Glucose 251 mg/dL (83-110); Lipase 889 U/L (8-78); Potassium 4.6 mmol/L (3.5-5.1); Protein, Total 6.9 g/dL (5.8-8.1); Sodium 137 mmol/L (136-145)
[2022-11-21 13:28] LABS: CKMB 5.2 ng/mL (0-6.6)
[2022-11-21] MEDS ORDERED: Morphine 2 MG/ML VIAL ONE (15:04)
[2022-11-21] MEDS ORDERED: Dextrose 5% in Water 1,000 ML IV PRN (17:38)
[2022-11-21] MEDS ORDERED: Dextrose 50% Abboject 50 ML SYRINGE SLOW IVP PRN (17:38)
[2022-11-21] MEDS ORDERED: Senokot S 8.6-50 MG TAB PO PRN (17:44)
[2022-11-21] MEDS ORDERED: Ondansetron PF 4 MG/2 ML Vial IVP PRN (17:44)
[2022-11-21] MEDS ORDERED: Sodium Chloride 0.9% 1,000 ML IV SCH (17:45)
[2022-11-21] MEDS ORDERED: Insulin Regular 300 UNITS/3 ML VIAL SC PRN (18:45)
[2022-11-21] MEDS ORDERED: Morphine 2 MG/ML VIAL SLOW IVP PRN (18:45)
[2022-11-21] MEDS ORDERED: HumaLOG 300 UNITS/3 ML VIAL SC PRN ×2 (18:45→18:51)
[2022-11-21] MEDS ORDERED: Metoclopramide HCl 10 MG/2 ML VIAL IVP PRN (18:45)
[2022-11-21] MEDS ORDERED: Electrolyte Replacement Protocol FS SCH (19:00)
[2022-11-21 19:45] LABS: Troponin I Less than 0.010 ng/mL (< 0.028)
[2022-11-21] MEDS ORDERED: Tamsulosin HCl 0.4 MG CAP PO SCH (21:00)
[2022-11-21] MEDS ORDERED: Pantoprazole 40 MG VIAL IVP SCH (21:00)
[2022-11-21] MEDS: Apixaban 5 MG TAB PO SCH (22:06)
[2022-11-22 04:59] LABS: #Basophils 0.1 thou/uL (0.0-0.2); #Eosinphils 0.2 thou/uL (0.0-0.7); #Lymphocytes 2.1 thou/uL (1.20-3.40); #Monocytes 0.5 thou/uL (0.11-0.59); #Neutrophils 5.6 thou/uL (1.40-6.50); %Basophils 0.7 % (0.0-1.0); %Eosinophils 2.8 % (0.0-10.0); %Neutrophils 65.4 % (42.0-75.0); Hemoglobin 11.8 g/dL (14.0-18.0); Mean Corpuscular HGB CONC 33.1 g/dL (32.0-36.0); Mean Corpuscular Hemoglobin 32.5 pg (27.0-31.0); Mean Platelet Volume 7.9 fL (7.4-10.4); Platelet Count 218 10x3/uL (130-400); RBC Distribution Width 11.5 % (11.5-14.5); Red Blood Cell (RBC) Count 3.62 mill/uL (4.70-6.10); White Blood Cell (WBC) Count 8.5 10x3/uL (4.8-10.8)
[2022-11-22 05:19] LABS: ALT (SGPT) 122 U/L (8-55); AST (SGOT) 83 U/L (5-34); Albumin 3.5 g/dL (3.4-4.8); Alkaline Phosphatase 105 U/L (40-110); Anion Gap 13 mmol/L (10-20); BUN (Urea Nitrogen) 23 mg/dL (8.4-25.7); Bilirubin, Total 0.8 mg/dL (0.2-1.2); Calc. Creatinine Clearance 48 mL/min (70-130); Calcium 9.4 mg/dL (7.8-10.44); Carbon Dioxide 24 mmol/L (23-31); Chloride 103 mmol/L (98-107); Estimated GFR 64; Globulin 2.4 g/dL (2.4-3.5); Glucose 75 mg/dL (83-110); Lipase 406 U/L (8-78); Potassium 3.6 mmol/L (3.5-5.1); Protein, Total 5.9 g/dL (5.8-8.1); Sodium 136 mmol/L (136-145)
[2022-11-22 06:52] VITALS: BMI 25.1
[2022-11-22] MEDS ORDERED: Sodium Chloride 0.9% 1,000 ML IV SCH (07:45)
[2022-11-22] MEDS ORDERED: Cyanocobalamin (Vitamin B-12) 1,000 MCG TAB PO SCH (09:00)
[2022-11-22] MEDS ORDERED: Aspirin 81 mg Enteric Coated Tablet PO SCH (09:00)
[2022-11-22] MEDS ORDERED: Pantoprazole 40 MG VIAL IVP SCH (09:00)
[2022-11-22] MEDS ORDERED: [UNRECOGNIZED DRUG - OTHER] PO SCH (09:00)
[2022-11-22] MEDS: Apixaban 5 MG TAB PO SCH (10:24)
[2022-11-22 12:49] VITALS: BP 115/73; TEMP 98.3
[2022-11-22 14:17] LABS: SARS-CoV-2 NAA Rapid Test Not Detected (NotDetected)
== END 2022-11-22 19:40 | disposition home or self-care (01) | DRG 439 ==
LOC: ERS 11:48 → ERHOLD 15:58 → 2NO 18:36
PROVIDERS: ADMIT Family Medicine; ATTEND Family Medicine
DX: K85.90 Acute pancreatitis without necrosis or infection, unspecified (principal); N17.9 Acute kidney failure, unspecified; K86.1 Other chronic pancreatitis; E78.5 Hyperlipidemia, unspecified; N40.0 Benign prostatic hyperplasia without lower urinary tract symptoms; D50.9 Iron deficiency anemia, unspecified; E11.22 Type 2 diabetes mellitus with diabetic chronic kidney disease; I12.9 Hypertensive chronic kidney disease with stage 1 through stage 4 chronic kidney disease, or unspecified chronic kidney disease; N18.9 Chronic kidney disease, unspecified; Z20.822 Contact with and (suspected) exposure to COVID-19; Z98.890 Other specified postprocedural states; Z90.49 Acquired absence of other specified parts of digestive tract; Z86.718 Personal history of other venous thrombosis and embolism; Z79.82 Long term (current) use of aspirin; Z79.4 Long term (current) use of insulin; Z79.899 Other long term (current) drug therapy; Z79.84 Long term (current) use of oral hypoglycemic drugs
CPT/HCPCS: 36415; 36416; 71045; 74177; 76705; 80053; 80061; 82550; 82553; 83690; 83880; 84484; 85025; 87324; 87449; 93005; 96374; C9113; J1815; J2272; J7050